=== PATIENT | female | born 1945 | race Caucasian/White ===

== ENCOUNTER 2017-05-03 11:40 | Emergency (ER) | payer MEDICARE, OTHER ==
[2017-05-03 12:37] VITALS: BP 168/84
--- NOTE | 2017-05-03 13:25 | EDM.PDOC ---
ED HPI GENERAL MEDICAL PROBLEM - General Chief Complaint: Neuro Symptoms/Deficits Stated Complaint: HEADAHCE, BLURRY VISION Time Seen by Provider: 05/03/17 13:06 Source of Information: Reports: Patient History Limitations: Reports: No Limitations - History of Present Illness Onset: Gradual, Other (Fall in shower 2 weeks ago with posterior head trauma. No LOC-) Onset Date: 04/30/17 Onset Time: 08:00 Duration: Week(s): (2) Location: Reports: Head Quality: Reports: Ache Severity: Mild Improves with: Reports: Rest Worsens with: Reports: Movement Associated Symptoms: Reports: Headaches, Weakness, Other (vertigo). 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 ) - Related Data Allergies Allergy/AdvReac Type Severity Reaction Status Date / Time No Known Allergies Allergy Verified 05/03/17 11:45 Home Meds: Home Meds Aspirin [Halfprin] 81 mg PO DAILY 11/03/16 [History] Ibuprofen [Advil] 200 mg PO Q6H PRN 11/03/16 [History] Cholecalciferol (Vitamin D3) [Vitamin D3] 2,000 unit PO DAILY 05/03/17 [History] Lisinopril/Hydrochlorothiazide [Lisinopril-Hctz 10-12.5 mg Tab] 1 each PO DAILY 05/03/17 [History] Multivitamin with Minerals [Multiple Vitamin] 1 tab PO DAILY 05/03/17 [History] traMADol HCl [Tramadol HCl] 50 - 100 mg PO Q6H PRN 05/03/17 [History] Past Medical History HEENT History: Reports: Cataract, Other (See Below) (Lasik) Cardiovascular History: Reports: Hypertension Respiratory History: Reports: Other (See Below) (Tobacco Use) Gastrointestinal History: Reports: GERD Genitourinary History: Reports: None 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 Musculoskeletal History: Reports: Back Pain, Chronic Neurological History: Reports: None, Vertigo Psychiatric History: Reports: Other (See Below) ( of 1 1/2 years ago) Endocrine/Metabolic History: Reports: None Hematologic History: Reports: None Immunologic History: Reports: None Oncologic (Cancer) History: Reports: None Dermatologic History: Reports: None - Infectious Disease History Infectious Disease History: Reports: None - Past Surgical History HEENT Surgical History: Reports: Cataract Surgery Social & Family History - Family History Respiratory: Reports: COPD (Father) GI: Reports: Other (See Below) (Stomach Cancer mother) Oncologic: Reports: Esophageal - Tobacco Use Smoking Status *Q: Current Every Day Smoker Years of Tobacco use: 50 Packs/Tins Daily: 0.5 Smoking Cessation Information Provided To Patient: Yes Second Hand Smoke Exposure: No - Tobacco Core Measures Tobacco Use/Smoking Within Last 30 Days: Yes Smoking Frequency Within Last 30 Days: Reports: Five or More Cigarettes Per Day Desires Tobacco Cessation Medication: Refuses FDA Approved Med - Caffeine Use Caffeine Use: Reports: Coffee - Alcohol Use Alcohol Use History: Yes Days Per Week of Alcohol Use: 4 Number of Drinks Per Day: 3 Total Drinks Per Week: 12 - Recreational Drug Use Recreational Drug Use: No - Sexual History Sexual History: Reports: None - Living Situation & Occupation Living situation: Reports: Occupation: Retired ED ROS GENERAL - Review of Systems Review Of Systems: See Below Constitutional: Reports: No Symptoms, Weakness, Fatigue HEENT: Reports: Eye Pain Respiratory: Reports: No Symptoms Cardiovascular: Reports: No Symptoms, Blood Pressure Problem. Denies: Chest Pain Endocrine: Reports: Fatigue GI/Abdominal: Reports: No Symptoms : Reports: No Symptoms Musculoskeletal: Reports: No Symptoms Skin: Reports: No Symptoms Neurological: Reports: Dizziness, Headache Psychiatric: Reports: No Symptoms Hematologic/Lymphatic: Reports: No Symptoms Immunologic: Reports: No Symptoms ED EXAM, NEURO - Physical Exam Exam: See Below Exam Limited By: No Limitations General Appearance: Alert, WD/WN, No Apparent Distress Eye Exam: Bilateral Eye: EOMI, Normal Fundi, Normal Inspection, PERRL Ears: Normal External Exam, Normal Canal, Hearing Grossly Normal, Normal TMs Nose: Normal Inspection, Normal Mucosa, No Blood Throat/Mouth: Normal Inspection, Normal Lips, Normal Teeth, Normal Gums, Normal Oropharynx, Normal Voice, No Airway Compromise Head Exam: Atraumatic, Normocephalic Neck: Normal Inspection, Supple, Non-Tender, Full Range of Motion Respiratory/Chest: No Respiratory Distress, Lungs Clear, Normal Breath Sounds, No Accessory Muscle Use, Chest Non-Tender Cardiovascular: Normal Peripheral Pulses, Regular Rate, Rhythm, No Edema, No Gallop, No JVD, No Murmur, No Rub GI/Abdominal: Soft (Female) Exam: Deferred Rectal (Female) Exam: Deferred Neurological: Alert, Normal Mood/Affect, Normal Dorsiflexion, CN II-XII Intact, Normal Plantar Flexion, Normal Gait, Normal Reflexes, No Motor/Sensory Deficits , Oriented x 3 DTR: 2+: Bicep (R), Bicep (L), Patella (R), Patella (L), Achilles (R), Achilles (L) Back Exam: Normal Inspection, Full Range of Motion Extremities: Normal Inspection, Normal Range of Motion, Non-Tender, No Pedal Edema, Normal Capillary Refill Psychiatric: Normal Affect, Normal Mood Skin Exam: Warm, Dry, Intact, Normal Color, No Rash Course - Vital Signs Last Recorded V/S: Last Vital Signs Temp 36.8 C 05/03/17 11:41 Pulse 94 05/03/17 11:41 Resp 16 05/03/17 11:41 BP 168/84 H 05/03/17 12:35 Pulse Ox 96 05/03/17 11:41 - Orders/Labs/Meds Orders: Active Orders 24 hr Category Date Time Status Head wo Cont [CT] Stat Exams 05/03/17 11:59 Taken CBC WITH AUTO DIFF [HEME] Stat Lab 05/03/17 13:15 Ordered CMP [COMPREHENSIVE METABOLIC PN,CMP] [CHEM] Stat Lab 05/03/17 13:15 Ordered Departure - Departure Time of Disposition: 13:34 Disposition: Home, Self-Care 01 Condition: Good Clinical Impression: Syncope - Discharge Information Instructions: Syncope, [id number] Referrals: Maddy Brady PA [Primary Care Provider] - Forms: ED Department Discharge Additional Instructions: Patient evaluated in clinic and taken to Er for CT of head secondary to vertigo and cephalgia S/P head injury [address]-HTN is noted despite antihypertensive medications-Labs drawn- increased B/P medication-Advised DASH diet and Cessation of tobacco use. Will F/U with PCP next week or prn for further evaluation and treatment. Advised make position changes slowly. MLP Sign Off - Signature Requirements MLP Sign Off: No - Problem List & Annotations (1) Hypertension SNOMED Code(s): 18319830 Code(s): I10 - ESSENTIAL (PRIMARY) HYPERTENSION Status: Acute Current Visit: Yes Qualifiers: Hypertension type: unspecified Qualified Code(s): I10 - Essential (primary ) hypertension (2) Cephalgia SNOMED Code(s): 79300317 Code(s): R51 - HEADACHE Status: Acute Current Visit: Yes Qualifiers: Headache chronicity pattern: episodic headache Intractability: intractable - My Orders Last 24 Hours: My Active Orders 05/03/17 11:59 Head wo Cont [CT] Stat 05/03/17 13:15 CBC WITH AUTO DIFF [HEME] Stat CMP [COMPREHENSIVE METABOLIC PN,CMP] [CHEM] Stat - Assessment/Plan Admission H&P: Please use this note as an admission H&P Last 24 Hours: My Active Orders 05/03/17 11:59 Head wo Cont [CT] Stat 05/03/17 13:15 CBC WITH AUTO DIFF [HEME] Stat CMP [COMPREHENSIVE METABOLIC PN,CMP] [CHEM] Stat Vertigo Cephalgia Head Injury-(OLD) HTN Tobacco Use Assessment:: HTN Tobacco Use Vertigo-resolving Cephalgia Head Injury Old-Negative CT Plan: Patient will be increased on Lisinopril 20 mg with HCTZ 25mg. Monitor B/P-DASH Diet- Advised cessation of tobacco use. F/U with PCP in 2 weeks or prn.
[2017-05-03 13:43] LABS: CHLORIDE,CL 100 mEq/L (98-106); SODIUM,NA 136 mEq/L (136-145)
== END 2017-05-03 13:55 | disposition home or self-care (01) ==
LOC: CC.ED 11:40
DX: R55 Syncope and collapse (principal); I10 Essential (primary) hypertension; K21.9 Gastro-esophageal reflux disease without esophagitis; F17.210 Nicotine dependence, cigarettes, uncomplicated; Z98.49 Cataract extraction status, unspecified eye; Z79.82 Long term (current) use of aspirin; Z79.899 Other long term (current) drug therapy
CPT/HCPCS: 36415; 70450; 80053; 85025; 99284

== ENCOUNTER 2019-01-09 07:55 | Emergency (ER) | payer MEDICARE, OTHER ==
[2019-01-09] MEDS ORDERED: Ketorolac 60 MG/2 ML SDV ONE (07:56)
[2019-01-09] MEDS ORDERED: Ketorolac 60 MG/2 ML SDV IM ONE (08:15)
[2019-01-09 08:30] VITALS: BP 148/109
--- NOTE | 2019-01-09 08:45 | EDM.PDOC ---
ED HPI GENERAL MEDICAL PROBLEM - General Chief Complaint: General Stated Complaint: low back pain Time Seen by Provider: 01/09/19 08:05 Source of Information: Reports: Patient History Limitations: Reports: No Limitations - History of Present Illness INITIAL COMMENTS - FREE TEXT/NARRATIVE: Lakshmi is a 73 yo female who presents to the ED with complaints of low back pain. States she had difficulty getting up and walking this morning d/t spasms in her back. Has a history of low back pain and does get shots every [address] Vallecillo in [place]. She admits she was suppose to go this week but missed her appointment. States it starts in her low back and radiates down her buttocks. Admits she has a lot of difficulty with ambulation but if she tries to move it immediately worsens. Denies any bowel or bladder dysfunction. Did take 2 hydrocodone tablets this morning which didn't give her any relief. - Related Data Allergies Allergy/AdvReac Type Severity Reaction Status Date / Time No Known Allergies Allergy Verified 01/09/19 07:58 Home Meds: Home Meds Aspirin [Halfprin] 81 mg PO DAILY 11/03/16 [History] Ibuprofen [Advil] 200 mg PO Q6H PRN 11/03/16 [History] Cholecalciferol (Vitamin D3) [Vitamin D3] 2,000 unit PO DAILY 05/03/17 [History] Lisinopril/Hydrochlorothiazide [Lisinopril-Hctz 10-12.5 mg Tab] 1 each PO DAILY 05/03/17 [History] Multivitamin with Minerals [Multiple Vitamin] 1 tab PO DAILY 05/03/17 [History] Hydrocodone/Acetaminophen [Hydrocodon-Acetaminophen 5-325] 1 each PO Q4H [History] Past Medical History HEENT History: Reports: Cataract, Other (See Below) Cardiovascular History: Reports: Hypertension Respiratory History: Reports: Other (See Below) Gastrointestinal History: Reports: GERD Genitourinary History: Reports: None 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 Musculoskeletal History: Reports: Back Pain, Chronic Neurological History: Reports: None, Vertigo Psychiatric History: Reports: Other (See Below) Endocrine/Metabolic History: Reports: None Hematologic History: Reports: None Immunologic History: Reports: None Oncologic (Cancer) History: Reports: None Dermatologic History: Reports: None - Infectious Disease History Infectious Disease History: Reports: None - Past Surgical History HEENT Surgical History: Reports: Cataract Surgery Social & Family History - Family History Respiratory: Reports: COPD GI: Reports: Other (See Below) Oncologic: Reports: Esophageal - Tobacco Use Smoking Status *Q: Current Every Day Smoker Years of Tobacco use: 55 Packs/Tins Daily: 1 - Caffeine Use Caffeine Use: Reports: Coffee - Sexual History Sexual History: Reports: None - Living Situation & Occupation Living situation: Reports: Occupation: Retired ED ROS GENERAL - Review of Systems Review Of Systems: See Below Constitutional: Reports: No Symptoms HEENT: Reports: No Symptoms Respiratory: Reports: No Symptoms Cardiovascular: Reports: No Symptoms GI/Abdominal: Reports: No Symptoms : Reports: No Symptoms Musculoskeletal: Reports: Back Pain, Muscle Pain, Muscle Stiffness Skin: Reports: No Symptoms Neurological: Reports: No Symptoms Psychiatric: Reports: No Symptoms ED EXAM, GENERAL - Physical Exam Exam: See Below Exam Limited By: No Limitations General Appearance: Alert, Mild Distress Head: Atraumatic, Normocephalic Neck: Normal Inspection, Supple Respiratory/Chest: No Respiratory Distress, Lungs Clear, Normal Breath Sounds, No Accessory Muscle Use Cardiovascular: Regular Rate, Rhythm, No Murmur GI/Abdominal: Normal Bowel Sounds, Soft, Non-Tender, No Organomegaly, No Distention, No Abnormal Bruit Back Exam: Decreased Range of Motion, Muscle Spasm, Paraspinal Tenderness ( right lower back). No: CVA Tenderness (L), CVA Tenderness (R) Extremities: Normal Inspection, Normal Range of Motion, No Pedal Edema, Normal Capillary Refill Neurological: Alert, Oriented, CN II-XII Intact, Normal Cognition, No Motor/ Sensory Deficits Psychiatric: Normal Affect, Normal Mood Skin Exam: Warm, Dry, Intact, Normal Color, No Rash Course - Vital Signs Last Recorded V/S: Last Vital Signs Temp 98.5 F 01/09/19 08:02 Pulse 75 01/09/19 08:02 Resp 18 01/09/19 08:02 BP 148/109 H 01/09/19 08:02 Pulse Ox 98 01/09/19 08:02 - Orders/Labs/Meds Meds: Medications Discontinued Medications Generic Name Dose Route Start Last Admin Trade Name Freq PRN Reason Stop Dose Admin Ketorolac Tromethamine Confirm 01/09/19 07:56 Toradol Administered 04/13/19 07:57 Dose 60 mg .ROUTE .STK-MED ONE Orphenadrine Citrate Confirm 01/09/19 07:56 Norflex Administered 01/09/19 07:57 Dose 60 mg .ROUTE .STK-MED ONE Departure - Departure Time of Disposition: 08:54 Disposition: Home, Self-Care 01 Clinical Impression: Sciatica of right side associated with disorder of lumbar spine - Discharge Information Instructions: Radicular Pain, Back Pain, Adult, [id number], Sciatica, Easy-to -Read Referrals: Rohan Bonilla MD [Primary Care Provider] - Additional Instructions: 1) Toradol 10mg - 1 tablet every 6-8 hours as needed for pain 2) Flexeril 10mg - 1 tablet every 8 hours for spasms 3) Physical therapy referral for ultrasound, traction if needed 4) May apply heat or ice as needed 5) Handouts on sciatica given 6) Return if any concerns or symptoms return. - Problem List & Annotations (1) Sciatica of right side associated with disorder of lumbar spine SNOMED Code(s): 31969960, 326413936 Code(s): M53.86 - OTHER SPECIFIED DORSOPATHIES, LUMBAR REGION Status: Acute Current Visit: Yes - Assessment/Plan Plan: Lakshmi was given IM Toradol and Norflex. She did well and symptoms improved. On arrival pain was 10 out of 10 and now 5 out of 10. Will discharge, see additional instructions.
== END 2019-01-09 09:00 | disposition home or self-care (01) ==
LOC: CC.ED 07:55
DX: M54.41 Lumbago with sciatica, right side (principal); F17.210 Nicotine dependence, cigarettes, uncomplicated; K21.9 Gastro-esophageal reflux disease without esophagitis; Z79.82 Long term (current) use of aspirin; Z79.899 Other long term (current) drug therapy
CPT/HCPCS: 96372; 99283; J1885; J2360